=== PATIENT | male | born 1995 | race Caucasian/White ===

== ENCOUNTER 2024-10-03 18:26 | Emergency (ER) | payer BC, SELFPAY ==
--- OUTSIDE RECORDS SUMMARY | 2023-06-02 04:00 | XMS_ITS ---
Author Organization [facility] es Address [address] [place] [address] Care Team Providers Care Spray Gunner Name Role Phone Dr. Zachary Odonnell Unavailable [phone] REASON FOR VISIT NEW PT - TOP RIGHT TOOTH PAIN Encounters Encounter Location Date Provider Diagnosis [facility] [address] [place] [address] 06/02/2023 Zachary Odonnell Plan Of Treatment No Information Progress Notes * MALIK JACOB LDOB:[birth year] (29 yo M)Acc No.[id number]:06/02/2023 Patient: MALIK ABBOTT Provider: Mone Odonnell DDS :1995 A ge:28 Y S ex:Male Date:06/02/2023 Address:[facility] [address] [id number] Subjective: * Chief Complaints: * 1 . NEW PT - TOP RIGHT TOOTH PAIN. * Medical History: Objective: * Vitals: Assessment: Plan: * Treatment: * Images: * Electronic signature of Dr. Zachary Odonnell , DMD on 10/03/2024 at 06:36 PM EDT Sign off status: Pending * Provider: Mone Odonnell DDS Date: 06/02/2023 Generated for Colleeni mavis/Camron/eTransmitting on: 10/03/2024 06:36 PM EDT
[2024-10-03 18:31] VITALS: BP 131/87; PULSE 91; TEMP 36.8; O2SAT 99; BMI 27.4
--- OUTSIDE RECORDS SUMMARY | 2024-10-03 18:36 | XMS_ITS | Patient Health Record ---
Author Organization [facility] es Address [address] [address] Reason For Referral No Information Plan Of Treatment No Information Insurance Providers Payer Name Payer Address Payer Phone Subscriber Number Group Number Insured Name Patient Relationship to Insured Coverage Start Date Coverage End Date [employer] Primary [address] [place] [address] [phone] [id number] MALIK JACOB Self - patient is the insured 4
--- NOTE | 2024-10-03 18:54 | PC.NURSE ---
pt c/o all over body / muscle cramping that started at 3pm. no jerking movements observed
--- NOTE | 2024-10-03 19:16 | ED_ITS ---
HPI HPI - General Adult General Chief complaint: Extremity Problem, Nontraumatic Stated complaint: Cramping all over body Time Seen by Provider: 10/03/24 19:01 Source: patient Mode of arrival: walk-in Limitations: no limitations History of Present Illness HPI narrative: This 29-year-old male presents to the emergency department stating while at work today around 3 PM he started experiencing generalized cramps involving his trunk and extremities. There is no nausea or vomiting. 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 He has had cramps off-and-on in the past also but not quite as intense as today. He denies vomiting or diarrhea. Patient is not a cigarette smoker. Alcohol consumption is described as 4-6 beers 4-5 times a week. Related Data Allergies Allergy/AdvReac Type Severity Reaction Status Date / Time No Known Drug Allergies Allergy Verified 10/03/24 18:35 Review of Systems ROS Status of ROS 10 or more systems reviewed and unremark able except as noted in history and below PFSH PFS Social History Little interest or pleasure in doing things: not at all Feeling down, depressed, or hopeless: not at all Exam Narrative Exam Narrative: Patient is afebrile and nondistressed. His vital signs are stable. Skin is warm and dry. Pupils are equal and reactive and there is no icterus or pallor the oral cavity is moist and not injected. Neck is supple. Lung sounds are clear to auscultation bilaterally with good air entry. Heart has a regular rate and rhythm. Abdomen is soft and nontender and there is no organomegaly or fluid wave. Lower extremities are warm and dry and there is no calf tenderness or pedal edema. Speech and mentation are clear and intact. There is no facial asymmetry. He moves all extremities actively. Constitutional Vital Signs, click to edit/add: Last Vital Signs Temp 98.2 F 10/03/24 18:31 Pulse 91 H 10/03/24 18:31 Resp 16 10/03/24 18:31 BP 131/87 10/03/24 18:31 Pulse Ox 99 10/03/24 18:31 O2 Del Method Room Air 10/03/24 18:31 Course Vital Signs Vital signs: Vital Signs Temperature 98.2 F 10/03/24 18:31 Pulse Rate 91 H 10/03/24 18:31 Respiratory Rate 16 10/03/24 18:31 Blood Pressure 131/87 10/03/24 18:31 Pulse Oximetry 99 10/03/24 18:31 Oxygen Delivery Method Room Air 10/03/24 18:31 Temperature 98.2 F 10/03/24 18:31 Pulse Rate 91 H 10/03/24 18:31 Respiratory Rate 16 10/03/24 18:31 Blood Pressure 131/87 10/03/24 18:31 Pulse Oximetry 99 10/03/24 18:31 Oxygen Delivery Method Room Air 10/03/24 18:31 Medical Decision Making MDM Narrative Medical decision making narrative: Assessment: Has a bump in his creatinine and the urine looks a little concentrated. I suspect his symptoms are due to some degree of heat exhaustion. He is treated with 2 mL of IV lactated Ringers in the ED and has then discharged to outpatient follow-up. He was advised to keep up with his fluids and is given a note to be off work for tomorrow. He is to return anytime for worsening symptoms. Lab Data Labs: Lab Results 10/03/24 10/03/24 Range/Units 19:16 19:21 WBC 9.4 (4.0-11.0) 10^3/uL RBC 5.48 (4.70-6.10) 10^6/uL Hgb 16.9 (14.0-18.0) g/dL Hct 48.9 (42.0-54.0) % MCV 89.2 (80.0-94.0) fL MCH 30.8 (25.9-34.0) pg MCHC 34.6 (29.9-35.2) g/dL RDW 11.7 (11.0-15.0) % Plt Count 225 (150-450) 10^3/uL MPV 10.6 (9.5-13.5) fL Neut % (Auto) 77.0 H (43.0-75.0) % Lymph % (Auto) 13.0 L (20.5-60.0) % Bay % (Auto) 9.2 (1.7-12.0) % Eos % (Auto) 0.4 L (0.9-7.0) % Baso % (Auto) 0.2 (0.2-2.0) % Neut # (Auto) 7.2 H (1.4-6.5) 10^3/uL Lymph # (Auto) 1.2 (1.2-3.8) 10^3/uL Bay # (Auto) 0.9 H (0.3-0.8) 10^3/uL Eos # (Auto) 0.0 (0.0-0.7) 10^3/uL Baso # (Auto) 0.0 (0.0-0.1) 10^3/uL Abs Immat Gran (auto) 0.02 (0.00-0.03) 10^3/uL Imm/Tot Granulo (auto) 0.2 (0.0-0.5) % Sodium 134 L (136-145) mmol/L Potassium 4.6 (3.5-5.1) mmol/L Chloride 95 L (98-107) mmol/L Carbon Dioxide 29.7 (21.0-32.0) mmol/L Anion Gap 13.9 BUN 19.0 H (7.0-18.0) mg/dL Creatinine 1.92 H (0.70-1.30) mg/dL Est GFR ( Amer) 50 L (>=60 mL/min/1.73m^2) Est GFR (Non-Af Amer) 41 L (>=60 mL/min/1.73m^2) BUN/Creatinine Ratio 9.9 Glucose 95 (74-106) mg/dL Calcium 10.7 H (8.5-10.1) mg/dL Magnesium 2.3 (1.8-2.4) mg/dL Total Bilirubin 1.4 H (0.2-1.0) mg/dL AST 52 H (15-37) U/L ALT 57 (16-63) U/L Alkaline Phosphatase 78 (46-116) U/L Total Protein 8.6 H (6.4-8.2) g/dL Albumin 4.7 (3.4-5.0) g/dL Globulin 3.9 g/dL Albumin/Globulin Ratio 1.2 Urine Color Dk. yellow (YELLOW) Urine Clarity Clear (CLEAR) Urine pH 5.5 (5.0-9.0) Ur Specific [place] 1.025 (1.005-1.025) Urine Protein 30 A (NEG/TRACE) mg/dL Urine Glucose (UA) Negative (NEGATIVE) mg/dL Urine Ketones Trace A (NEGATIVE) mg/dL Urine Occult Blood Negative (NEGATIVE) Urine Nitrite Negative (NEGATIVE) Urine Bilirubin Small A (NEGATIVE) Urine Urobilinogen 1.0 (0.2-1.0) EU/dL Ur Leukocyte Esterase Negative (NEGATIVE) Urine RBC 0-2 (0-2) #/HPF Urine WBC 0-2 A (NONE SEEN) #/HPF Ur Squamous Epith Cells Few A (NONE/RARE) #/LPF Urine Crystals None seen (None Seen) #/HPF Urine Bacteria Moderate A (NONE SEEN) #/HPF Urine Casts Seen A (NONE SEEN) #/LPF Hyaline Casts Moderate Urine Mucus Small A (NONE SEEN) Ur Culture Indicated? Yes-[facility] [place] Discharge Plan Discharge Stand Alone Forms: Work/School Release Chief Complaint: Extremity Problem, Nontraumatic Clinical Impression: Heat exhaustion Qualifiers: Encounter type: initial encounter Qualified Code(s): T67.5XXA - Heat exhaustion, unspecified, initial encounter Patient Disposition: Home, Self-Care Time of Disposition Decision: 20:52 Condition: Good Mode of Transportation: Private Vehicle Print Language: Swedish Instructions: Heat Exhaustion (ED), Liquids and Hydration for Athletes (ED) Additional Instructions: Drink extra fluids. Return for worsening symptoms. Referrals: Physician,Non-Staff, MD [Primary Care Provider] - 1 week
[2024-10-03 19:39] LABS: Glucose Urine UA NEGATIVE (NEGATIVE)
[2024-10-03 19:40] LABS: Hematocrit 48.9 % (42.0-54.0); Hemoglobin 16.9 g/dL (14.0-18.0); Immature Granulocytes Abs Auto 0.02 10^3/uL (0.00-0.03); Immature Granulocytes Pct Auto 0.2 % (0.0-0.5); Lymphocytes Absolute Auto 1.2 10^3/uL (1.2-3.8); Mean Corpuscular HGB Conc 34.6 g/dL (29.9-35.2); Mean Corpuscular Hemoglobin 30.8 pg (25.9-34.0); Mean Corpuscular Volume 89.2 fL (80.0-94.0); Platelet Count 225 10^3/uL (150-450); Red Blood Count 5.48 10^6/uL (4.70-6.10); White Blood Count 9.4 10^3/uL (4.0-11.0)
[2024-10-03 19:49] LABS: Cast Seen? SEEN #/LPF (NONE SEEN); Crystals Seen? None Seen #/HPF (None Seen)
[2024-10-03 19:50] LABS: Urine Culture Indicated YES-FRMC
[2024-10-03 20:15] LABS: Alanine Aminotransferase 57 U/L (16-63); Albumin Globulin Ratio 1.2; Albumin Level 4.7 g/dL (3.4-5.0); Alkaline Phosphatase 78 U/L (46-116); Anion Gap 13.9; Aspartate Amino Transferase 52 U/L (15-37); Blood Urea Nitrogen 19.0 mg/dL (7.0-18.0); Calcium 10.7 mg/dL (8.5-10.1); Carbon Dioxide 29.7 mmol/L (21.0-32.0); Chloride 95 mmol/L (98-107); Estimated GFR (African America 50 (>=60 mL/min/1.73m^2); Estimated GFR (Non-African Ame 41 (>=60 mL/min/1.73m^2); Globulin 3.9 g/dL; Glucose 95 mg/dL (74-106); Magnesium 2.3 mg/dL (1.8-2.4); Potassium 4.6 mmol/L (3.5-5.1); Sodium 134 mmol/L (136-145); Total Protein 8.6 g/dL (6.4-8.2)
== END 2024-10-03 21:04 | disposition home or self-care (01) ==
PROVIDERS: Emergency Provider Emergency Medicine
DX: T67.5XXA Heat exhaustion, unspecified, initial encounter (principal); X30.XXXA Exposure to excessive natural heat, initial encounter
CPT/HCPCS: 36415; 80053; 81001; 83735; 85025; 87086; 99284